=== PATIENT | female | born 1980 | race Caucasian/White ===

== ENCOUNTER → 2019-12-11 | Outpatient (CLI) | payer OTHER ==
[~2019-12-11] MED LIST: FERR159T2 PO; HYDR-3237 PO; IBUP-1222 PO; PREN1TAB56 PO
== END | disposition home or self-care (01) ==
LOC: CFH 12:03
PROVIDERS: ATTEND Specialist
DX: Z12.31 Encounter for screening mammogram for malignant neoplasm of breast (principal)
CPT/HCPCS: 77063; 77067